=== PATIENT | female | born 1970 | race Two or more races ===

== ENCOUNTER 2020-08-08 08:19 | Day surgery (SDC) | payer OTHER | END 2020-08-08 13:30 | disposition home or self-care (01) | LOC: AMB-ENDOS 08:19 | PROVIDERS: ATTEND Surgery | DX: K62.89 Other specified diseases of anus and rectum (principal); Z20.828 Contact with and (suspected) exposure to other viral communicable diseases ==

== ENCOUNTER 2020-09-23 11:07 | Outpatient (CLI) | payer OTHER | END 2020-09-27 12:00 | disposition home or self-care (01) | LOC: RX STUDY 11:07 | PROVIDERS: ATTEND Surgery | DX: K59.09 Other constipation (principal); R15.9 Full incontinence of feces | CPT/HCPCS: 74018; 78266; A9541 ==

== ENCOUNTER 2020-10-07 08:17 | Outpatient (CLI) | payer OTHER | END 2020-10-07 08:31 | disposition home or self-care (01) | LOC: TOM 08:17 | PROVIDERS: ATTEND Surgery | DX: Z12.11 Encounter for screening for malignant neoplasm of colon (principal); K92.2 Gastrointestinal hemorrhage, unspecified; R15.9 Full incontinence of feces; K59.09 Other constipation ==

== ENCOUNTER 2021-04-02 05:41 | Day surgery (SDC) | payer OTHER ==
[~2021-04-02 05:41] MED LIST: AMBIEN10 MG PO; DIOVAN HCT 1601 EAC1 PO; INDERAL XL120 MG PO; LORAZEPAM2 MG PO; PROCARDIA XL90 MG PO; TRAZODONE HCL150 MG PO
[2021-04-02] MEDS ORDERED: CEPHALEXIN500 M1 PO (18:22)
[2021-04-02] MEDS ORDERED: ULTRAM50 MG PO (18:22)
[2021-04-11] MEDS ORDERED: LINZESS PO (13:10)
== END 2021-04-02 20:20 | disposition home or self-care (01) ==
LOC: CIR.AMB 05:41
PROVIDERS: ATTEND Surgery
DX: R15.9 Full incontinence of feces (principal); Z20.822 Contact with and (suspected) exposure to COVID-19
CPT/HCPCS: 64581; 95972; C1778

== ENCOUNTER 2021-04-14 08:10 | Day surgery (SDC) | payer OTHER ==
[~2021-04-14 08:10] MED LIST changes: +CEPHALEXIN500 M1 PO; +LINZESS PO; +ULTRAM50 MG PO
[2021-04-14] MEDS ORDERED: TRAMADOL HCL50 MG PO (13:34)
== END 2021-04-14 16:10 | disposition home or self-care (01) ==
LOC: CIR.AMB 08:10
PROVIDERS: ATTEND Surgery
DX: R15.9 Full incontinence of feces (principal); Z20.822 Contact with and (suspected) exposure to COVID-19
CPT/HCPCS: 64590; 95971; L8679

== ENCOUNTER 2023-03-19 09:47 | Outpatient (CLI) | payer OTHER ==
[~2023-03-19 09:47] MED LIST changes: +TRAMADOL HCL50 MG PO
== END 2023-03-19 09:58 | disposition home or self-care (01) ==
LOC: MRI 09:47
DX: M43.22 Fusion of spine, cervical region (principal); M50.20 Other cervical disc displacement, unspecified cervical region; M43.26 Fusion of spine, lumbar region; M51.26 Other intervertebral disc displacement, lumbar region
CPT/HCPCS: 72156; 72157; 72158; Q9965; 72142; 72147; 72149